=== PATIENT | female | born 1995 | race Caucasian/White ===

== ENCOUNTER → 2020-11-18 12:58 | Outpatient (CLI) | payer OTHER, SELFPAY ==
[2020-11-18 14:01] LABS: Appearance Urine UA CLEAR; Bilirubin Urine UA NEGATIVE (NEGATIVE); Color Urine UA YELLOW; Glucose Urine UA NEGATIVE (Negative); Ketones Urine UA NEGATIVE (NEGATIVE); Leukocyte Esterase Urine UA TRACE (NEGATIVE); Nitrite Urine UA NEGATIVE (Negative); Occult Blood Urine UA NEGATIVE (Negative); Protein Urine UA NEGATIVE (Negative); Urobilinogen Urine UA 0.2 E.U./dL (0.2); pH Urine UA 6.5 (4.5-8.0)
[2020-11-18 14:02] LABS: RBC Urine None Seen (0-5/HPF)
[2020-11-18 14:16] LABS: Amorphous Sediment Urine 1+; Bacteria Urine Few (2-10); Squamous Epithelial Cell Urine 1-5 /HPF (0-5/HPF); WBC Urine 1-5/HPF (0-5/HPF)
[2020-11-18 14:17] LABS: Basophils Absolute Auto 0 /uL (0-100); Basophils Percent Auto 0.4 % (0-2); Eosinophils Absolute Auto 0 /uL (0-450); Eosinophils Percent Auto 0.5 % (2-4); Hematocrit 39.8 % (36-46); Hemoglobin 13.7 g/dL (12.0-16.0); Lymphocytes Absolute Auto 1400 /uL (1100-4500); Lymphocytes Percent Auto 22.2 % (25-40); Mean Corpuscular HGB Conc 34.5 % (30-36); Mean Corpuscular Hemoglobin 31.8 PG (26-34); Mean Corpuscular Volume 92.1 fL (80-100); Monocytes Absolute Auto 500 /uL (0-900); Neutrophils Absolute Auto 4400 /uL (1500-7000); Neutrophils Percent Auto 68.9 % (50-75); Red Blood Cell Count 4.32 X10^6/uL (4.0-5.2); Red Cell Distribution Width 12.2 % (11.6-14.8); White Blood Cell Count 6.4 X10^3/uL (4.5-11.0)
[2020-11-18 14:34] LABS: Add Manual Diff / Slide Review SLIDE REVIEW
[2020-11-18 17:06] LABS: Platelet Estimate Adequate on smear; RBC Morphology Normal Morphology
[2020-11-19 08:43] LABS: RPR Screen Non Reactive (Non Reactive)
[2020-11-19 10:09] LABS: Varicella IgG Antibody 367 index (Immune >165)
[2020-11-22 15:09] LABS: Hepatitis B Surface Antigen NEGATIVE s/c (NEGATIVE)
[2020-11-22 15:32] LABS: HIV 1 & 2 Ab/Ag 4th Gen Combo NEGATIVE (NEGATIVE); Hep C Virus Ab w/Reflex Quant NEGATIVE s/c (NEGATIVE)
[2020-11-23 16:15] LABS: Rubella Antibody IgG 30.3 IU/mL (>15)
== END ==
PROVIDERS: Referring Provider Obstetrics & Gynecology; Visit Provider Obstetrics & Gynecology
DX: Z34.81 Encounter for supervision of other normal pregnancy, first trimester (principal)
CPT/HCPCS: 36415; 80055; 81003; 81015; 86787; 86803; 86850; 86900; 86901; 87077; 87086; 87186; 87389

== ENCOUNTER → 2021-01-11 12:19 | Outpatient (CLI) | payer OTHER, SELFPAY ==
[2021-01-13 19:54] LABS: AFP Value 55.9 ng/mL (.); Gest Age on Col Date 16.7 weeks (.); Insulin Dep Diabetes No (.); OSBR Risk 1IN 3048 (.); Results Report (.); Test Results *Screen Negative* (.)
== END ==
PROVIDERS: Referring Provider Obstetrics & Gynecology; Visit Provider Obstetrics & Gynecology
DX: Z34.82 Encounter for supervision of other normal pregnancy, second trimester (principal); Z3A.16 16 weeks gestation of pregnancy
CPT/HCPCS: 36415; 82105

== ENCOUNTER → 2021-02-13 15:15 | Outpatient (CLI) | payer OTHER, SELFPAY ==
--- NOTE | 2021-02-13 15:17 | DI.US.S_ITS ---
PROCEDURE: US OB >= 14 WEEKS FETUS INDICATIONS: ANATOMY SCAN OUTSIDE/PRIOR DATING DATA: Last menstrual period (LMP): 09/16/2020 LMP-based estimated date of delivery (ALAN): 06/23/2021. First dating scan (date and location): 11/14/2020. Estimated date of delivery (ALAN) from first dating scan: 06/24/2021. The calculations are made using the ultrasound ALAN of 11/14/2020. TECHNIQUE: Real-time scanning was performed of the fetus, with image documentation and biometric measurements. Endovaginal scanning: No COMPARISON: [facility], , OB <= 14 WEEKS FETUS, 11/14/2020, 17:11. FINDINGS: General: A single living intrauterine gestation is present. Presentation: Anterior. Placenta: Placental position is anterior , without previa. And low-lying with the inferior margin of the placenta roughly 1.5 cm above the internal cervical os. Amniotic fluid index: 11.2 cm, normal range is 5-24 cm. Single deepest vertical pocket is not obtained. heart rate: 153 beats per minute. Maternal cervical canal: 5.6 cm long. Normal lower limit is 2.5 cm. biometrics: Biparietal diameter: 21 weeks 2 days Head circumference: 21 weeks 1 day Abdominal circumference: 20 weeks 5 days Femur length: 20 weeks 6 days Clinically estimated gestational age: 21 weeks 2 days Composite gestational age from present scan: 21 weeks Estimated weight and percentile: 319 g; 20 second percentile Anatomic survey: Neuro: Ventricles are non-dilated at less than 10 mm. Cisterna magna is normal at 3-11 mm. Cerebellum is normal in size and morphology. Nuchal skin fold: Normal at less than 6 mm between 14-21 weeks gestational age. Face: Nose and lips, facial profile are normal. Spine: No evidence for spina bifida. Heart: 4-chambered heart is present, with normal ventricular outflow tracts. Diaphragm: Diaphragm is intact. Stomach: Left-sided stomach is present. Kidneys: No hydronephrosis. Normal is less than 5 mm in 2nd trimester, less than 7 mm in 3rd trimester. Cord: 3-vessel cord has orthotopic insertion. Bladder: Normal in size. Extremities: All 4 extremities identified. IMPRESSION: 1. Normal interval growth. 2. Normal anatomic survey. 3. Low-lying placenta. Follow-up recommended. We strive to produce accurate, complete, and clear reports of imaging services. To assist us in improving patient care, this report was composed using standard report templates and voice recognition software. Therefore, it may contain abnormal punctuation, insertions and/or omissions. Occasional wrong-word or sound-alike substitutions may occur. Though we review the report and make efforts to correct it, we do recommend that the report be read carefully in proper context to recognize any text inaccuracies. Dictated by: Zana CASTELLANOS Interpreted: Hernando Mello MD on 02/13/2021 at 16:31 Transcribed by: BRENDAN on 02/13/2021 at 16:36 Approved by: Hernando Mello M.D. on 02/17/2021 at 11:03
== END ==
PROVIDERS: Referring Provider Obstetrics & Gynecology; Visit Provider Obstetrics & Gynecology
DX: O44.42 Low lying placenta NOS or without hemorrhage, second trimester (principal); Z3A.21 21 weeks gestation of pregnancy
CPT/HCPCS: 76811

== ENCOUNTER → 2021-03-13 11:18 | Outpatient (CLI) | payer OTHER, SELFPAY ==
[2021-03-13 13:39] LABS: Hematocrit 34.3 % (36-46); Hemoglobin 11.8 g/dL (12.0-16.0)
[2021-03-13 13:50] LABS: GTT (PREG) 1 Hour PP 50gm Dose 132 mg/dL (76-139)
== END ==
PROVIDERS: Referring Provider Obstetrics & Gynecology; Visit Provider Obstetrics & Gynecology
DX: Z34.82 Encounter for supervision of other normal pregnancy, second trimester (principal); Z3A.25 25 weeks gestation of pregnancy
CPT/HCPCS: 36415; 82950; 85014; 85018

== ENCOUNTER → 2021-04-18 19:08 | Outpatient (ROUT) | payer OTHER, SELFPAY ==
[2021-04-18 20:38] LABS: Urine N gonorrhoeae NOT DETECTED
[2021-04-18 20:57] LABS: Urine Chlamydia NOT DETECTED
== END ==
PROVIDERS: Visit Provider Obstetrics & Gynecology
DX: Z34.82 Encounter for supervision of other normal pregnancy, second trimester (principal); Z3A.30 30 weeks gestation of pregnancy
CPT/HCPCS: 87491; 87591

== ENCOUNTER → 2021-06-05 10:37 | Outpatient (CLI) | payer OTHER, SELFPAY ==
[2021-06-06 16:16] LABS: Strep Grp B PCR NEG for Grp B Strep
== END ==
PROVIDERS: Visit Provider Obstetrics & Gynecology
DX: Z34.83 Encounter for supervision of other normal pregnancy, third trimester (principal); Z3A.37 37 weeks gestation of pregnancy
CPT/HCPCS: 87653

== ENCOUNTER 2021-06-14 21:47 | Outpatient (CLI) | payer OTHER, SELFPAY | END 2021-06-14 22:45 | disposition home or self-care (01) | LOC: OB 07-03 13:02 | PROVIDERS: Referring Provider Obstetrics & Gynecology; Visit Provider Obstetrics & Gynecology | DX: O47.1 False labor at or after 37 completed weeks of gestation (principal); Z3A.38 38 weeks gestation of pregnancy | CPT/HCPCS: 59025; 59050; G0378; G0379 ==

== ENCOUNTER 2021-06-21 12:08 | Inpatient (IN) | payer OTHER, SELFPAY ==
--- NOTE | 2021-06-21 13:31 | PM.OBHP.IH.1 ---
OB HPI Date/Time Date of admission: 06/21/21 Date Patient Seen: 06/21/21 Time Patient Seen: 13:31 History of Present Condition Chief complaint: induction ALAN Calculator Estimated Delivery Date Method Current WG Current Estimate 06/23/21 LMP (Certain) 39w 5d Other Estimates 06/24/21 Ultrasound #1 39w 4d Estimated Gestational Age (weeks): 39+5 : 4 Para: 1 care: good care, initiated at week # (8), number of visits (9) and pounds weight gain (48) Dating criteria OB: LMP confirmed by 1st trimester US Ultrasounds: normal 1st trimester US and normal mid trimester US Obstetrical complications: none Medical complications OB: none Indications Other reason(s) for admission: Elective induction Preadmission Labs Last OB Lab Results: Blood Type A Positive 06/21/21 13:55 06/21/21 Antibody Screen Negative 06/21/21 13:55 06/21/21 Hematocrit 33.9 % (36-46) L 06/21/21 13:55 06/21/21 Hemoglobin 11.7 g/dL (12.0-16.0) L 06/21/21 13:55 06/21/21 Hepatitis B Surface Antigen Negative s/c (NEGATIVE) 11/18/20 13:22 11/18/20 Hepatitis C Antibody Negative s/c (NEGATIVE) 11/18/20 13:22 11/18/20 Rubella Antibody 30.3 IU/mL (>15) 11/18/20 13:22 11/18/20 Varicella-Zoster IgG Antibody 367 index (Immune >165) 11/18/20 13:22 11/18/20 Glucose 1 Hour 132 mg/dL (76-139) 03/13/21 12:39 03/13/21 Group B Streptococcus (PCR) Neg for grp b strep 06/05/21 10:37 06/05/21 -: Chlamydia screen: negative, Gonorrhea screen: negative and Urine: positive (E. coli treated ) -: PAP smear: Normal Genetic Screens: Cell-free DNA: Normal (Normal female) and Alpha-fetoprotein: Normal External Labs -: Urine: positive (E. coli treated ) Prior (ies) Past Pregnancies Del. Date GA/Weeks Labor Lgth Wt Sex Route Outcome Anesthesia Place Delv Breastfeed Preg Comp Name 11/17/18 40.1 9 7 lb 9 oz Female vaginal live - full term epidural [place], [place] 15 mos. exclusively other [place] Delivery Date: 11/17/18 Last Updated by: Virginia Green R.N. Induced for suspected anomaly. 20 wk US showing brightening in the bowel with suspected Down Syndrome, but baby was born healthy and without issue. 2nd degree tear with repair, healed well. Denies PPD. Evaluation Evaluation Baseline heart rate: 130 Variability: Moderate (11-25) monitor accelerations: Present Monitor Decelerations: Absent Status: Category l Dilation (cm): 5 Effacement (%): 85 station: -1 Position of cervix: mid Consistency: soft [facility] Medical History (Updated 06/12/21 @ 10:52 by Mendy Calhoun MD) Anxiety Kidney infection (~2010) UTI (urinary tract infection) (~2007) Surgical History (Updated 11/10/20 @ 13:25 by Virginia Green RN) H/O breast augmentation (~11/2015) H/O dilation and curettage (~10/2017) [place] teeth extracted Family History (Updated 11/10/20 @ 13:37 by Virginia Green RN) Mother Autism disorder Father Family estrangement Unknown family medical history Grandmother Unknown family medical history Grandfather Unknown family medical history Grandmother Unknown family medical history Grandfather Unknown family medical history Social History marital status: number of children: 1 household members: spouse and children lives independently: Yes caregiver/support person: No housing: house pets and animals: No education level: college (1 1/2 years [employer]) 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 ) substance use type: does not use during the past year weight has: remained stable well-balanced diet: about half the time daily servings fruits/veg: other (Pt could not answer...not sure she is eating much lately.) caffeine: Yes (Stays under 200 mg daily. ) Type(s) of exercise: walking and regular exercise (Normally does Crossfit 4 times a week but stopped with . ) frequency: 3-4 times per week duration: 15-30 minutes/day Meds Home Medications and Allergies Home Medications Medication Instructions Recorded Confirmed Type prenat.vits,carly,[id number] 1 tab PO DAILY 11/10/20 06/21/21 History ondansetron HCl 4 mg tablet 4 mg PO Q6H PRN #30 tab 01/12/21 06/21/21 Rx (Zofran) nitrofurantoin macrocrystal 50 mg 50 mg PO BEDTIME #90 cap 05/10/21 06/21/21 Rx capsule (Macrodantin) Allergies Allergy/AdvReac Type Severity Reaction Status Date / Time No Known Drug Allergies Allergy Verified 06/12/21 10:14 OB Exam Narrative Exam Narrative: Generally: No acute distress Lungs: Clear to auscultation bilaterally Cardiovascular: Regular rate and rhythm Fundal height: 39 cm Estimated weight: 7-1/2 lb Extremities: Trace edema, 1+ DTR's Objective Labs Result Diagrams: 06/21/21 13:55 Assessment and Plan Assessment and Plan Assessment and Plan narrative: Assessment: 26-year-old 4 para 1 at 39-,5/7 weeks gestation for elective induction of labor Plan: Artificial rupture of membranes with copious clear amniotic fluid Pitocin per protocol 2 Epidural as necessary Expected management to spontaneous vaginal delivery Time Spent with Patient Total time spent with greater than 50% in coordination of care (as documented) at patient's floor/unit and/or counseling patient:: 15-24 minutes
[2021-06-21] MEDS: LACTATED RINGERS 1,000 ML 100 ML IV (14:00)
[2021-06-21 14:13] LABS: Add Manual Diff / Slide Review NO; Basophils Absolute Auto 0 /uL (0-100); Basophils Percent Auto 0.4 % (0-2); Eosinophils Absolute Auto 0 /uL (0-450); Eosinophils Percent Auto 0.4 % (2-4); Hematocrit 33.9 % (36-46); Hemoglobin 11.7 g/dL (12.0-16.0); Lymphocytes Absolute Auto 1700 /uL (1100-4500); Lymphocytes Percent Auto 22.3 % (25-40); Mean Corpuscular HGB Conc 34.6 % (30-36); Mean Corpuscular Hemoglobin 31.1 PG (26-34); Monocytes Absolute Auto 800 /uL (0-900); Monocytes Percent Auto 10.1 % (3-14); Neutrophils Absolute Auto 5100 /uL (1500-7000); Neutrophils Percent Auto 66.8 % (50-75); Platelet Count 205 X10^3/uL (150-400); Red Blood Cell Count 3.76 X10^6/uL (4.0-5.2); White Blood Cell Count 7.7 X10^3/uL (4.5-11.0)
[2021-06-21 14:25] LABS: COVID19 -Nasal RAPID Negative (Negative)
[2021-06-21] MEDS: FENT 2MCG/ML BUPIV 0.125% EPI 200 MCG/100 ML PLAST..BAG 12 MCG EPIDURAL (15:45)
[2021-06-21] MEDS: OXYTOCIN PREMIX 30 UNIT/500 ML PLAST..BAG IV (15:59)
[2021-06-21] MEDS: CALCIUM CARBONATE 500 MG TAB 1000 MG PO (17:44)
--- NOTE | 2021-06-21 18:03 | PM.OBPNLAB ---
Date/Time Date Patient Seen: 06/21/21 Time Patient Seen: 18:03 Pain Control Pain control: epidural Pelvic Exam Dilation (cm): 7 Effacement (%): 100 station: 0 Contractions Monitor mode: External Pitocin rate (mU/min): 6 Contraction frequency (min): 2 Contraction duration (min): 1 Contraction pattern: Regular Contraction intensity: Strong/Firm Status status: Category l Heart Rate Baseline: 130 Monitor Accelerations: Present Monitor Decelerations: Variable Monitor Variability: Moderate Assessment and Plan Assessment: active labor and induction ongoing Comments: Decreased Pitocin rate to space contractions out Expected management to spontaneous vaginal delivery
--- NOTE | 2021-06-21 20:53 | P.PCNOB_ITS ---
Events: Labor Induction Labor & Delivery Delivery date: 06/21/21 Intrapartal Events: None Cervical ripening method: none Induction method: per pitocin protocol Delivery augmentation: rupture of membranes Delivery monitor: external FHT and external uterine Route of delivery: vacuum extraction Episiotomy description: None L&D Laceration Description: Perineal - 2nd Degree and Vaginal - 2nd Degree Delivery repair: vicryl and chromic Estimated blood loss (mL): 150 Anesthesia Type: Epidural Complications: None Narrative: Patient complete and pushed for 2 hours. At 8:10 p.m., a live female delivered with vacuum assistance over an intact perineum. Vacuum applied due to significant swelling and Parmjit in clinic presentation. With 1 contraction and 1 pull the vertex came to the perineum. The vacuum was removed. With 1 push the head delivered. A nuchal cord x1 was reduced on the perineum. The remainder of the body delivered without difficulty and was placed on mom's abdomen. The cord was double clamped and cut after it stopped pulsing. Cord bloods were obtained. Pitocin was started in the IV fluids. At 8:37 p.m. the placenta delivered intact with a three-vessel cord. Fundus was massaged and 3 moderate-sized clots were expressed. A second-degree vaginal/perineal laceration was repaired with 2-0 Vicryl and 2-0 chromic in the usual fashion. Hemostasis was achieved. Apgars 8 at 1 minute and 9 at 5 minutes. Estimated blood loss 150 cc. . Epidural analgesia. Mom and infant stable to recovery. weight 8 lb 13 oz. [place] Baby 1: Infant gender: Female Presentation: vertex Position: Left Occiput Anterior Placenta delivery description: Spontaneous Cord Vessel Description: Nuchal Cord, Loose, Reduced and Clamped/Cut score (1 min): 8 score (5 min): 9 weight: 8 lb 13 oz Plan for aftercare: Routine care
[2021-06-21] MEDS: IBUPROFEN 600 MG TABLET PO (23:16)
[2021-06-21] MEDS: ACETAMINOPHEN 325 MG TABLET 650 MG PO (23:17)
[2021-06-21] MEDS: DERMOPLAST SPRAY 20% 60 ML 1 SPRAY TOP (23:18)
[2021-06-22] MEDS: ONDANSETRON 4 MG/2 ML INJ IV (01:32)
[2021-06-22] MEDS: OXYCODONE IR 5 MG TABLET PO ×3 (05:24→13:47)
[2021-06-22] MEDS: IBUPROFEN 600 MG TABLET PO ×2 (05:25→13:08)
[2021-06-22] MEDS: ACETAMINOPHEN 325 MG TABLET 650 MG PO ×2 (05:34→13:07)
[2021-06-22 08:37] LABS: Hematocrit 31.5 % (36-46); Hemoglobin 10.9 g/dL (12.0-16.0)
[2021-06-22] MEDS: DOCUSATE 100 MG CAPSULE PO (09:23)
[2021-06-22 09:24] VITALS: TEMP 36.7
[2021-06-22] MEDS: PRENATAL VIT,CALC/IRON/FOLIC 1 TABLET 1 TAB PO (09:24)
[2021-06-22 13:07] VITALS: TEMP 37.1
[2021-06-22 13:08] VITALS: TEMP 37.1
[2021-06-22 17:20] VITALS: TEMP 36.7
[2021-06-22] MEDS: OXYCODONE IR 5 MG TABLET 10 MG PO (17:20)
--- NOTE | 2021-06-22 17:26 | P.DS_ITS ---
Discharge Providers Provider Date of admission: 06/21/21 12:08 Discharge Date: 06/22/21 Consults: 06/22/21 20:50 Consult to Storm Window Installer Routine Comment: Discharge provider: Mendy Calhoun MD Summary Hospital Course Date Patient Seen: 06/22/21 Time Patient Seen: 17:26 Diagnoses: 39-5/7 weeks gestation Induction of labor Vacuum assisted vaginal delivery Epidural analgesia Hospital Course: Patient is a 26-year-old 4 para 2 who presented on June 21, 2021 for an induction of labor. She was started on Pitocin. Artificial rupture membranes was performed. She received an epidural for pain management. She progressed to complete dilation. She pushed for approximately 2 hours. Baby's head was a sent Clinic. A vacuum was applied and with 1 contraction the vertex delivered without complication. Her course was unremarkable. She is discharged home on day # 1. Peripartum Data Delivery Method: Assisted Delivery Laceration Description: Perineal - 2nd Degree and Vaginal - 2nd Degree Episiotomy description: None Procedures: Pitocin induction of labor Epidural analgesia Artificial rupture of membranes Vacuum assisted vaginal delivery Second-degree perineal/vaginal laceration repair complications: none 1: Gender: Female Disposition of : home Status at Discharge Cognitive/behavioral status at discharge: oriented Functional status at discharge: independent ambulation Overall status at discharge: patient is progressing back to baseline Time Spent with Patient Time attestation: Total time spent providing and/or coordinating discharge services: Time spent: Less than 30 minutes Objective Labs Result Diagrams: 06/22/21 08:25 Labs: Laboratory Results - last 24 hr 06/22/21 08:25 Hgb 10.9 L Hct 31.5 L Exam Vital Signs (past 8 hours): - 06/22/21 13:07 06/22/21 13:08 06/22/21 17:20 Temperature 98.8 F 98.8 F 98.1 F Narrative Exam Narrative: Generally: Patient is sitting up in bed, no acute distress Fundus: Firm at U -1 Extremities: Trace edema, negative Homans Discharge Plan Discharge Plan Patient Disposition: Home Provider Discharge Comment: Call with fever, chills, or bleeding vaginally more than a pad in an hour Ibuprofen 600 mg every 6 hours as needed for cramping Oxycodone 5-10 mg every 6 hours as needed Discharge orders & Medications Prescriptions: New oxycodone 5 mg tablet 5 mg PO Q6H PRN (Reason: pain) Qty: 30 0RF Rx Instructions: Take 1-2 tabs every 6 hours as needed for pain ibuprofen 600 mg tablet 600 mg PO QID PRN (Reason: cramping) Qty: 30 2RF Continued prenat.vits,carly,[id number] Tablet 1 tab PO DAILY 0RF Discontinued ondansetron HCl [Zofran] 4 mg tablet 4 mg PO Q6H PRN (Reason: nausea and vomiting) Qty: 30 2RF nitrofurantoin macrocrystal [Macrodantin] 50 mg capsule 50 mg PO BEDTIME Qty: 90 2RF Rx Instructions: must administer with a meal/food Follow up/Referrals: Mendy Calhoun MD [Physician] - 6 Weeks Diet/Activity/Treatments Diet: Regular Activity: Nothing in the vagina for 6 weeks Skin/Wound/Dressing Care Report to your healthcare provider any signs of infection, such as:: chills, fever, increased pain and unusual drainage Visit Report/Discharge Packet Instructions: Depression, DI for Labor and Delivery, Vaginal , DI for Prescription Opioid Use
[2021-06-22 18:38] VITALS: BP 109/75; PULSE 83; RESP 16; TEMP 36.7
== END 2021-06-22 20:00 | disposition home or self-care (01) | DRG 807 ==
PROVIDERS: Admitting Provider Obstetrics & Gynecology; Referring Provider Obstetrics & Gynecology; Visit Provider Obstetrics & Gynecology
DX: O70.1 Second degree perineal laceration during delivery (principal); Z37.0 Single live birth; Z3A.39 39 weeks gestation of pregnancy; O69.81X0 Labor and delivery complicated by cord around neck, without compression, not applicable or unspecified; Z20.822 Contact with and (suspected) exposure to COVID-19
CPT/HCPCS: 01967; 36415; 59050; 59400; 85014; 85018; 85025; 86850; 86900; 86901; 87635; C9803; G0379; J2405; J2590

== ENCOUNTER 2022-01-04 20:46 | Emergency (ER) | payer OTHER, SELFPAY ==
[2022-01-04 21:04] VITALS: BP 106/70; PULSE 104; RESP 20; TEMP 36.7; O2SAT 99; BMI 25.0
[2022-01-04 22:00] LABS: COVID19 -Nasal RAPID Negative (Negative)
--- NOTE | 2022-01-04 23:00 | ED.GENADULT ---
HPI - General Adult General Chief complaint: Upper Respiratory Symptoms Stated complaint: cough, chest tightness Time Seen by Provider: 01/04/22 22:08 Source: patient Mode of arrival: Ambulatory Limitations: no limitations History of Present Illness HPI narrative: Patient is a 26-year-old female. She is here for evaluation approximately 1 week of chest congestion and cough and generally not feeling well. States that she is had COVID in the past and this feels similar to that. She states that just today she started to have body aches. She was concerned that she had COVID once again. Related Data Home Medications Medication Instructions Recorded Confirmed prenat.vits,carly,[id number] 1 tab PO DAILY 11/10/20 08/16/21 Previous Rx's Medication Instructions Recorded citalopram 20 mg tablet 20 mg PO DAILY #90 tabs 07/24/21 norethindrone (contraceptive) 0.35 0.35 mg PO DAILY #84 tabs 08/16/21 mg tablet (Ortho Micronor) hydroxyzine HCl 25 mg tablet See Rx Instructions .Route 08/17/21 .COMPLEX #20 tabs Allergies Allergy/AdvReac Type Severity Reaction Status Date / Time No Known Drug Allergies Allergy Verified 08/16/21 10:51 Review of Systems Constitutional Constitutional: Reports system reviewed and no additional complaints, except as documented ENT Ears, Nose, Mouth, and Throat: Reports system reviewed and no additional complaints, except as documented Respiratory Respiratory: Reports system reviewed and no additional complaints, except as documented Integumentary/Breasts Skin/Breast: Reports system reviewed and no additional complaints, except as documented Hematologic/Lymphatic On Anticoagulants: No Patient History Medical History Anxiety Kidney infection (~2010) UTI (urinary tract infection) (~2007) Surgical History (Updated 11/10/20 @ 13:25 by Virginia Green RN) H/O breast augmentation (~11/2015) H/O dilation and curettage (~10/2017) [place] teeth extracted Family History (Updated 11/10/20 @ 13:37 by Virgniia Green RN) Mother Autism disorder Father Family estrangement Unknown family medical history Grandmother Unknown family medical history Grandfather Unknown family medical history Grandmother Unknown family medical history Grandfather Unknown family medical history Social History marital status: number of children: 1 household members: spouse and children lives independently: Yes caregiver/support person: No housing: house pets and animals: No education level: college (1 1/2 years [employer]) 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 ) substance use type: does not use during the past year weight has: remained stable well-balanced diet: about half the time daily servings fruits/veg: other (Pt could not answer...not sure she is eating much lately.) caffeine: Yes (Stays under 200 mg daily. ) Type(s) of exercise: walking and regular exercise (Normally does Crossfit 4 times a week but stopped with . ) frequency: 3-4 times per week duration: 15-30 minutes/day Smoking Status: Never smoker Exam Initial Vital Signs Initial Vital Signs: Vital Signs Temperature 98.0 F 01/04/22 21:04 Pulse Rate 104 H 01/04/22 21:04 Respiratory Rate 20 01/04/22 21:04 Blood Pressure 106/70 01/04/22 21:04 Pulse Oximetry 99 01/04/22 21:04 Oxygen Delivery Method 01/04/22 21:04 HENHI Head: normal to inspection and normocephalic Resp Effort & Inspection: normal respiratory effort Auscultation: clear to auscultation bilaterally Cardio Rate: tachycardic Rhythm: regular rhythm Skin General: no rashes or lesions noted Neuro General: patient alert, patient awake and moves all extremities Extrem General: normal to inspection and capillary refill normal Course Orders Ordered: ED Orders 01/04/22 21:38 COVID19 -Nasal RAPID/Pre-Proc Stat Vital Signs Vital signs: Vital Signs - 8 hr 01/04/22 21:04 Temperature 98.0 F Pulse Rate 104 H Respiratory Rate 20 Blood Pressure 106/70 Pulse Oximetry 99 Oxygen Delivery Method Room Air Medical Decision Making Lab Data Labs: Lab Results 01/04/22 Range/Units 21:38 SARS-CoV-2 (PCR) Negative (Negative) MDM Narrative Medical decision making narrative: Not hypoxic. No respiratory distress. Clear lung exam. No indication for chest x-ray she clinically does not have pneumonia. Her 2 kids her here in the emergency department with similar symptoms has her. One child has RSV. The patient's COVID test is negative. We did discuss the possibility of other viral etiologies such as the flu or RSV. We did discuss that none of these require antibiotics. Did discuss use of Tylenol and ibuprofen for fevers. Was given return precautions. She expressed understanding and agreement. Discharge Plan Departure Patient Disposition: Home Clinical Impression: Cough, Body aches Instructions: Cough Activity Restrictions/Additional Instructions: Continue to take all of your medications as directed. You can take Tylenol or ibuprofen for any body aches or fevers. You can try [id number] cough and cold preparations. Contact your primary provider for follow-up. Return to the emergency department for any new or worsening symptoms. Prescriptions: No Action citalopram 20 mg tablet 20 mg PO DAILY Qty: 90 3RF hydroxyzine HCl 25 mg tablet See Rx Instructions .ROUTE .COMPLEX Qty: 20 0RF Dose Instruction: TAKE 1 TABLET BY MOUTH FOUR TIMES DAILY NEEDED FOR ANXIETY Rx Instructions: TAKE 1 TABLET BY MOUTH FOUR TIMES DAILY NEEDED FOR ANXIETY prenat.vits,carly,[id number] Tablet 1 tab PO DAILY norethindrone (contraceptive) [Ortho Micronor] 0.35 mg tablet 0.35 mg PO DAILY Qty: 84 3RF Visit Report Forms: Patient Portal/API
== END 2022-01-04 23:12 | disposition home or self-care (01) ==
PROVIDERS: Emergency Provider Emergency Medicine
DX: R05.9 Cough, unspecified (principal); R52 Pain, unspecified; Z20.822 Contact with and (suspected) exposure to COVID-19; Z86.16 Personal history of COVID-19
CPT/HCPCS: 87635; 99281; 99282; C9803